=== PATIENT | male | born 1950 | race Caucasian/White ===

== ENCOUNTER 2023-07-25 11:45 | Outpatient (CLI) | payer OTHER, MEDICAID | END 2023-07-25 11:46 | LOC: PET 11:45 | PROVIDERS: ATTEND Radiology Radiation Oncology | DX: C21.1 Malignant neoplasm of anal canal (principal); N32.89 Other specified disorders of bladder; R59.0 Localized enlarged lymph nodes | CPT/HCPCS: 78815; A9552 ==